=== PATIENT | female | born 1950 | race Caucasian/White ===

== ENCOUNTER 2020-12-28 09:06 | Emergency (ER) | payer MEDICARE ==
[~2020-12-28] VITALS: Ht 162.6 cm; Wt 69.8 kg
[2020-12-28 10:54] LABS: HEMOGLOBIN 12.9 gm/dL (12.0-15.0); MCH 30.3 pg (26.0-34.0); MCHC 33.1 g/dL (28.0-37.0); MCV 91.6 fL (80.0-100.0); MPV 6.9 fl. (7.2-11.1); NUCLEATED RBCS 0 /100WBC; PLATELET COUNT* 326 thou/uL (150-400); RBC 4.26 mil/uL (4.20-5.00); WBC 16.6 thou/uL (4.0-11.0)
[2020-12-28 11:09] LABS: CALCIUM 9.3 mg/dL (8.5-10.1); CREATININE 1.2 mg/dL (0.6-1.3); POTASSIUM 3.5 mmol/L (3.5-5.1)
[2020-12-28 11:13] LABS: ALBUMIN 2.5 g/dL (3.4-5.0); TOTAL BILIRUBIN 1.1 mg/dL (<0.1-1.0); TOTAL PROTEIN 7.5 g/dL (6.4-8.2)
[2020-12-28 12:24] LABS: ABSOLUTE LYMPHOCYTES 1.7 thou/uL (0.8-5.3); ABSOLUTE NEUTROPHILS 14.9 thou/uL (1.6-8.1); PLATELET ESTIMATE ADEQUATE
[2020-12-28] MEDS ORDERED: HYDROCODON-ACE1 EAC7 PO (13:23)
[2020-12-28] MEDS ORDERED: CEPHALEXIN500 MG PO (13:34)
[2020-12-28] MEDS ORDERED: BACTRIM DS TAB1 EACH PO (13:34)
[2020-12-28 14:07] VITALS: BP 153/88
--- NOTE | 2020-12-28 14:50 | EKG ---
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 : 1950 Requested By: Carmela Llanos Order Number: [id number] MD: Roel Martinez Measurements Intervals [place] Rate: 78 P: 73 AL: 142 QRS: -20 QRSD: 80 T: -6 QT: 367 QTc: 419 Interpretive Statements Sinus rhythm Inferior infarct, old nonspecific st-t changes No previous ECG available for comparison Electronically Signed On 12-28-2020 14:49:53 CDT by Roel Martinez [email or web address] <ELECTRONICALLY SIGNED> By: Roel Martinez MD, [facility] 12/28/20 1449 1105 1105 Roel Martinez MD, [facility] /EPI
== END 2020-12-28 14:08 | disposition home or self-care (01) ==
LOC: M.ERS 09:06
PROVIDERS: Nurse Practitioner Family
DX: L03.221 Cellulitis of neck (principal); Z20.822 Contact with and (suspected) exposure to COVID-19; L03.313 Cellulitis of chest wall; R94.5 Abnormal results of liver function studies; K08.89 Other specified disorders of teeth and supporting structures; R53.83 Other fatigue

== ENCOUNTER → 2021-01-15 | Outpatient (CLI) | payer MEDICARE ==
[~2021-01-15] MED LIST: BACTRIM DS TAB1 EACH PO; CEPHALEXIN500 MG PO; HYDROCODON-ACE1 EAC7 PO
== END ==
LOC: M.ULTRA 08:00
PROVIDERS: ATTEND Family Medicine
DX: R74.8 Abnormal levels of other serum enzymes (principal)